=== PATIENT | female | born 1955 | race Caucasian/White ===

== ENCOUNTER 2025-03-20 05:22 | Observation (INO) | payer OTHER ==
[2025-03-14 13:39] LABS: MEAN PLATELET VOLUME 8.7 FL (7.4-10.4); PRE OP HEMATOCRIT 38.5 % (35.0-45.0); PRE OP HEMOGLOBIN 13.1 g/dL (12.0-16.0); PRE OP PLATELET COUNT 212 X10'3 (140-440); PRE OP WHITE BLOOD COUNT 8.4 10'3 (4.8-10.8); RED CELL DISTRIBUTION WIDTH 13.8 % (11.5-14.5)
[2025-03-14 13:56] LABS: CREATININE 1.02 MG/DL (0.40-0.90); PRE OP ALT 20 U/L (30-65); PRE OP ANION GAP 10 (8-16); PRE OP AST 17 U/L (10-37); PRE OP BILIRUB, TOTAL 0.4 MG/DL (0.0-1.0); PRE OP GLUCOSE 95 MG/DL (70-104); PRE OP POTASSIUM 3.6 MMOL/L (3.4-5.1); PRE OP SODIUM 142 MMOL/L (135-145); TOTAL CARBON DIOXIDE 27.3 MMOL/L (24-32); eGFR 54 ML/MIN
[2025-03-20] VITALS (22 sets, daily range): BP systolic 112–138; BP diastolic 46–82; PULSE 44–70; RESP 10–17; TEMP 96.7–98.1; O2SAT 96–100
[~2025-03-20] VITALS: Ht 177.8 cm; Wt 99.3 kg
[~2025-03-20 05:22] MED LIST: ACYC-126 PO; BUPR-726 PO; CHOL100046 PO; DILT120C88 PO; ESCI-8 PO; HYDR-3686 PO; HYDR-3973 PO; HYDR12.55 PO; LORA-269 PO; MELO-102 PO
[2025-03-20] MEDS: ceFAZolin 2gm/dext,iso 50mL 50 ML IV ONE (05:42)
[2025-03-20] MEDS: ringers solution, lacted 1,000 ML IV SCH (05:43)
[2025-03-20] MEDS: VANCOMYCIN/H2O 1.5g/300mL PB 300 ML IV ONE (05:44)
[2025-03-20] MEDS ORDERED: BUPIVACAINE/MELOXICAM 14 ML VIAL IL ONE (06:42)
[2025-03-20] MEDS ORDERED: tetracaine 1% (10mg/ml) pres. free inj. ONE (07:14)
[2025-03-20] MEDS ORDERED: fentaNYL/PF 50MCG/1 ML 2ML syringe ONE (07:17)
[2025-03-20] MEDS ORDERED: MIDAZolam 1mg/ml 10ml vial ONE ×2 (07:17→07:46)
[2025-03-20] MEDS ORDERED: propofol inj 20 ML IV ONE ×2 (07:40)
[2025-03-20] MEDS ORDERED: ringers solution, lacted 1,000 ML IV SCH (08:05)
[2025-03-20] MEDS ORDERED: morphine 4 MG/ML inj SYRINge IV PRN (08:05)
[2025-03-20] MEDS ORDERED: enalaprilat 1.25mg/ml 2ml vial IV PRN (08:05)
[2025-03-20] MEDS ORDERED: hydrALAZINE 20mg/ml inj. IV PRN (08:05)
[2025-03-20] MEDS ORDERED: ondansetron/PF 4mg/2ml inj IV PRN ×2 (08:05→09:50)
[2025-03-20] MEDS ORDERED: fentaNYL/PF 50MCG/1 ML 2ML syringe IV PRN ×2 (08:05)
--- NOTE | 2025-03-20 08:14 | ANESTHESIA RECORDS ---
Nerve Block Providers to CC CC: MOHSEN LUNA MD ~ Diagnosis: Nerve Block requested by: MOHSEN LUNA MD Neuraxial/Peripheral Nerve Block requested for Post-operative analgesia by Physician above DIAGNOSIS: Post-operative pain. (Body Area) Shoulder: [ ] Arm: [ ] Hand: [ ] Hip: [ ] Knee: [ Right ] Ankle: [ ] Foot: [ ] Leg: [ ] Abdomen: [ ] Other: [ ] Post-operative pain expected to be/is inadequately managed by oral or IV medicines. Regional anesthetic expected to facilitate rehabilitation and/or discharge from facility. Other:[ _] Procedure Performed: Femoral / Saphenous: Right Time out Done?: Yes Time of Time out: 08:04 Procedure Details: PROCEDURE DETAILS: Risks, benefits and alternatives explained Informed consent obtained, and patient wishes to proceed Conscious sedation with indicated monitors Patient positioned, pertinent anatomy defined, sterile technique used Needle used: [ ] 3 1/8 inch Stimuplex Ultra 22ga [ ] 4 inch Stimuplex Ultra 20ga [ X] 6 inch Stimuplex Ultra 20ga [ ] 6 inch, Quikbloc over the needle catheter set 20ga [ ] 4 inch Quikbloc over the needle catheter set 20ga [ ]Other: [ ] Loss of twitch @ [ ]mA [ X] Single Injection [ ] Catheter Ultrasound Guidance Used: [ X] Yes [ ] No Attempts:[_1 ] Medicines injected: [ ]Clonidine Amt:[ ] [ ]Dexamethasone Amt:[ ] [ X ]Ropivacaine Amt:[_0.5% 30 c.c ] [ ]Bupivacaine Amt:[ ] [ ]Lidocaine Amt:[ ] [ ]Exparel 1.33%:[ ] [ ]Epinephrine Amt[ ] [ ]Other: [ ] Intermittent aspiration during local anesthetic administration No symptoms of intraneural or intravenous injection Patient tolerated procedure well Comments Right mid medial thighis examined with Ultrasound and aductor canal and vessels are identified. Needleis in the canal and after negative aspirations ,local mix is injected,spreead is noted. Ultrasound image is captured,documented. CED CHILEL MD Mar 20, 2025 08:14
[2025-03-20] MEDS: BUPIVACAINE/MELOXICAM 14 ML VIAL IL ONE (08:23)
[2025-03-20] MEDS ORDERED: ROPIVAcaine 0.5% (5mg/ml) 30ml vial ONE ×2 (09:29→09:31)
[2025-03-20] MEDS ORDERED: PCA WASTE DOCUMENTATION 1 MG ML MC SCH (09:50)
[2025-03-20] MEDS ORDERED: magnesium hydroxide 30ml (MOM) UD suspension PO PRN (09:50)
[2025-03-20] MEDS: ROPIVAcaine 0.5% (5mg/ml) 30ml vial IJ ONE (09:50)
[2025-03-20] MEDS ORDERED: bisacodyl 10mg suppository rectal RC PRN (09:50)
--- NOTE | 2025-03-20 10:04 | OPERATIVE REPORT ---
Operative Report Operative Report OPERATIVE REPORT [facility] [address] [place] [address] Date of service: March 20, 2025 PREOPERATIVE DIAGNOSIS [id number] Primary osteoarthritis of right knee POSTOPERATIVE DIAGNOSIS [id number]..[id number] Primary osteoarthritis of right knee Operation Performed 81170 Computer Assisted Navigation Musculoskeletal - Imageless 17948 Total Knee Arthroplasty 80312 Remote therapeutic monitoring; device supply with scheduled recordings every 30 days. Procedure: Computer-assisted, robotically-assisted, right total knee arthroplasty. Surgeon: Dr. Red Rob Deburr Technician: Kyra Alberto PA-C Anesthesiologist: Dr. Tello Anesthesia: Spinal anesthetic and regional blocks Indications: 69-year-old female who has chronic osteoarthritis of the right knee with severe pain and limitation of activities despite extensive non- operative management. This patient has had extensive conservative treatment of knee joint arthritis, including rest, external joint support, anti-inflammatory medications, physical therapy, and corticosteroid injection. Physical therapy has been provided, along with a home exercise program prior to making the decision to proceed with surgical treatment. This therapeutic intervention did not provide any substantial relief of symptoms or improvement in function. The patient has been utilizing a cane, set of crutches, or walker, for more than 3 months prior to deciding to proceed with surgery. These interventions have not provided sufficient relief of pain to allow improvement in function. The patient has utilized non-steroidal anti-inflammatory medications for relief of pain over an extended period of time (more than 2 months), and has not experienced sufficient improvement in symptoms. Despite these treatments, this patient has continued difficulties with pain and limited function. They are unable to walk long distances, do vigorous activities, sit or sleep comfortably. Total knee replacement is the next reasonable step in terms of treatment. Indications for insurance underwriting assistant surgeon: A second set of skilled hands with specific orthopedic knowledge of the surgical procedure and orthopedic surgical techniques was necessary to accomplish this operation successfully, and with the least amount of morbidity for the patient. This facilitated operative exposure, manipulation and handling of tissues, placement of any implants, and accomplishment of wound closure. Findings: There was indeed a very severely arthritic knee, with loss of cartilage, exposed bone, and marginal osteophytes. The lateral compartment was particularly bad. A 7 degree valgus deformity and 2.5 degree extension deformity were measured preoperatively. Post operative alignment was 1 degree v arus, and two degrees extension. Complications: None Estimated Blood Loss: 150 mL Implants: A Praneeth Persona CR total knee system was utilized with a size eight right femoral component, a size D right tibial component with a smart stem, and a 35 mm patellar component. The 14 mm medial congruent right tibial insert was utilized. The Riboxx robotically assisted total knee arthroplasty system and computer was utilized. Procedure: The risks, benefits, expected results, and possible complications of the planned procedure had been explained to the patient and informed consent obtained. The patient was taken to the operating room and underwent a spinal anesthetic. The patient was placed in the supine position on the operating table, and the right leg was prepped and draped in the usual fashion. A timeout was taken prior to surgery, confirming patient identification, operative side operative site, planned procedure, administration of pre-operative antibiotics, site marking, and presence of all necessary implants and instruments, x-rays and equipment. A standard anterior, slightly lateral approach was performed with a medial par apatellar arthrotomy, and a VMO split. Time was then spent removing excessive synovial tissue and exposing the medial and lateral gutters, as well as moving the anterior sections of the residual menisci. The patella was mobilized to be able to be retracted laterally. This gave exposure of the anterior aspect of the knee. Attention was then directed to the patella. An oscillating saw was utilized to make a flat cut in a freehand manner, removing approximately 9 mm of thickness. The patella was then sized and drilled for the appropriate size patella implant. Infrared arrays were then placed on the distal shaft of the femur anteriorly, and the proximal tibia medially. Utilizing the Riboxx computer system, the hip, knee, and ankle were landmarked in usual fashion. The initial alignment measurements were then taken confirming the above listed deformity. Surgical planning was then carried out on the computer, confirming alignment of components, sizing, and gap balancing. Appropriate soft tissue releases were pe rformed. The insurance underwriting assistant surgeon was instrumental in maintaining exposure and tissue management and protecting vital structures. The robot was then utilized to perform all distal femoral cuts. The femur was prepared in 4 degrees of flexion and neutral coronal alignment. The robot was then utilized to cut the proximal tibia in 5 degrees of flexion and neutral coronal alignment. The computer was then utilized to check longitudinal alignment and soft tissue balance, and this confirmed excellent alignment. Next the dynamic balancing block was utilized to check and adjust soft tissue balancing. Finally, attention was directed to the proximal tibia. The implant was sized and properly rotated, the central drill, and the fin punch performed. Final check of alignment and balancing was then carried out, as well as final removal and cleaning up of soft tissue such as meniscal remnants and osteophytes. A tourniquet was inflated to 300 mmHg after exsanguination of the leg with an Esmarch. Cement was then mixed; 2 batches were utilized, mixed together, for the tibia, the femur and the patella. The cut surface of the tibia was thoroughly lavaged with the pulsating lavage and then dried. The tibia was impacted with the mallet, seating it quite nicely in its proper rotational alignment. Excess cement was removed from around the margins. The femoral cuts were cleaned with a pulsating lavage and then dried with the lap sponges, and the femur was impacted into position with a mallet. The patella was held firmly in place with a clamp. Excess cement was removed around the margins of the components as the cement cured. Pressure was held on the femoral component and tibia by placing a spacer and bringing the leg to full extension and applying axial and hyperextension force. Upon complete hardening of all cement, the knee was inspected and excess cement removed. We lavaged the knee to wash out any debris and checked to make sure we had no impinging cement. The trial spacer was replaced and overall alignment checked with computer, ensuring we had full extension of the knee, and appropriate medial and lateral soft tissue balance, as well as flexion and e xtension balance. The tourniquet was deflated and hemostasis obtained with electrocautery. The wound was irrigated thoroughly one more time and then dried with lap sponges. The final tibial spacer was impacted and locked into the locking mechanism without difficulty. After final irrigation and suction of excess fluid, the knee was infiltrated with our intraoperative local anaesthetic mixture for postoperative pain control. The tibial and femoral navigation pins and arrays were removed. The tourniquet was then deflated, tourniquet time was 14 minutes. The wound was then closed in layers including retinacular closure, subcutaneous tissue, and skin. A sterile dressing was applied and the patient was returned to the recovery room in satisfactory condition. Electronically Signed by: Red Rob MD Doctor, Orthopedic Surgery Signed on: 03/20/2025 10:04 AM RED ROB MD Mar 20, 2025 10:04
[2025-03-20] MEDS: oxyCODONE IR 5mg (immed. release) tablet PO PRN ×2 (13:19→21:26)
[2025-03-20] MEDS: ceFAZolin/D5W- 1GM premix 50 ML IV SCH (16:00)
[2025-03-20] MEDS ORDERED: HYDROmorphone inj. 0.5 MG/0.5 ML DISP.SYRIN IV PRN (17:35)
[2025-03-20] MEDS: vancomycin/NS 1 GM ADD-VANTAGE 250 ML IV SCH (19:59)
[2025-03-20] MEDS: potassium cl 20mEq in 1/2 NS 1,000 ML IV SCH (20:03)
[2025-03-21 02:00] VITALS: BP 109/40; PULSE 55; RESP 14; TEMP 97.6; O2SAT 97
[2025-03-21 05:59] LABS: MEAN PLATELET VOLUME 9.2 FL (7.4-10.4); RED CELL DISTRIBUTION WIDTH 13.8 % (11.5-14.5)
[2025-03-21 06:00] VITALS: BP 115/44; PULSE 54; RESP 15; TEMP 97.3; O2SAT 97
[2025-03-21 06:28] LABS: TOTAL CARBON DIOXIDE 30.0 MMOL/L (24-32)
--- NOTE | 2025-03-21 07:41 | DISCHARGE SUMMARY ---
Discharge Summary Ortho CC ~ Discharge Summary *Problems/Diagnosis: (1) S/P total knee arthroplasty Status: Acute Admission Diagnosis: osteoarthritis Discharge Diagnosis\Comment: see above Operations\Procedures see above Consultants: none Complications: none Condition on DC: Stable Discharge Summary: Patient has right TKA on date of admission with an uneventful overnight stay. She had some difficulty with early pain management but has since improved. She is stable for d/c home today so long as she meets d/c criteria and works with physical therapy. Total Time Spent on D/C: Up to 30 Minutes Medications Home Meds: Home Medications Active Reported Vitamin D3 (Cholecalciferol (Vitamin D3)) 25 Mcg (1000 Unit) Capsule 1 Cap PO DAILY Cardizem Cd (Diltiazem Hcl) 120 Mg Cap.sr.24h 1 Cap PO DAILY Escitalopram Oxalate 10 Mg Tablet 30 Mg PO DAILY Atarax* (Hydroxyzine HCl) 25 Mg Tablet 50 Mg PO HS Meloxicam 15 Mg Tablet 1 Tab PO DAILY Hydrocodone-Apap 10-325 Tablet (Acetaminophen/Hydrocodone Bitart) 10mg/325mg Tablet 1 Tab PO TID PRN Hydrochlorothiazide 12.5 Mg Tablet 1 Tab PO DAILY Bupropion Xl (Bupropion HCl) 150 Mg Tab.er.24h 1 Tab PO DAILY Ativan (Lorazepam) 1 Mg Tablet 1 Tab PO TID PRN Acyclovir 400 Mg Tablet 1 Tab PO BID Supervising Physician Supervising Physician: Dr. Red Rob Problem Qualifiers (1) S/P total knee arthroplasty: Qualified Codes: Z96.651 - Presence of right artificial knee joint VIOLET HOGAN PAC Mar 21, 2025 07:41
[2025-03-21] MEDS: diltiazem CD 120mg capsule (once-daily) PO SCH (07:59)
[2025-03-21 08:00] VITALS: RESP 16
[2025-03-21] MEDS: ESCITALOPRAM 10 mg tablet 10 MG TABLET PO SCH ×2 (08:00→20:02)
[2025-03-21] MEDS: cholecalciferol (vitamin D3) 1,000 unit (25mcg) tablet PO SCH (08:02)
[2025-03-21] MEDS: BUPROPION HCL 150MG XL 24 HR 150 MG TAB PO SCH (08:03)
[2025-03-21 10:00] VITALS: BP 106/42; PULSE 50; RESP 16; TEMP 98.1; O2SAT 97
[2025-03-21] MEDS: JUVEN Smoothie Arginine/Glut./Ca2+Bmb (Juven 19.3pkt) 240ml cup PO SCH (17:42)
[2025-03-21 18:00] VITALS: BP 131/49; PULSE 61; RESP 16; TEMP 98.7; O2SAT 99
[2025-03-21 22:00] VITALS: BP 123/46; PULSE 64; RESP 16; TEMP 97.9; O2SAT 99
[2025-03-22 03:00] VITALS: O2SAT 99
[2025-03-22 04:58] LABS: MEAN PLATELET VOLUME 9.4 FL (7.4-10.4); RED CELL DISTRIBUTION WIDTH 13.7 % (11.5-14.5)
--- NOTE | 2025-03-22 07:20 | PROGRESS NOTE ---
Progress Note Orthopedic Ortho Post Op Day #: 1 Progress Note This progress note is for 03/21/2025. Patient originally anticipated going home yesterday but ultimately ended up staying because of pain and difficulty ambulating. Today she feels much better. She will be discharged home today. Discharge summary already done yesterday. Objective Vital Signs Date Time Temp Pulse Resp B/P (MAP) Pulse Ox O2 Delivery O2 Flow Rate FiO2 03/22/25 04:36 14 03/22/25 03:01 Room Air 0.0 99 03/22/25 03:00 99 03/21/25 22:00 97.9 64 123/46 (71) Result Diagram: 03/22/25 0443 03/21/25 0531 Alert and Oreinted x4, Appropriate, In no acute distress, Dressing clean and dry Problem/Assessment/Plan Problems/Diagnosis: (1) S/P total knee arthroplasty Discharge to home on 03/22/2025. Follow up in my office in approximately 2 weeks for recheck Problem Qualifiers (1) S/P total knee arthroplasty: Qualified Codes: Z96.651 - Presence of right artificial knee joint MOHSEN LUNA MD Mar 22, 2025 07:19
[2025-03-22 07:30] VITALS: RESP 18; O2SAT 97
== END 2025-03-22 10:10 | disposition home or self-care (01) ==
LOC: PAS 05:22 → ORTHO 4S 05:23
PROVIDERS: ADMIT Orthopaedic Surgery; ATTEND Orthopaedic Surgery
DX: M17.11 Unilateral primary osteoarthritis, right knee (principal); M25.561 Pain in right knee; M17.31 Unilateral post-traumatic osteoarthritis, right knee; I10 Essential (primary) hypertension; F41.9 Anxiety disorder, unspecified; F32.9 Major depressive disorder, single episode, unspecified; E66.9 Obesity, unspecified; Z68.31 Body mass index [BMI] 31.0-31.9, adult; Z79.899 Other long term (current) drug therapy; Z98.890 Other specified postprocedural states
CPT/HCPCS: 20985; 27447; 36415; 80051; 80053; 82948; 85025; 87081; 96365; 96366; 96367; 96375; 96376; 97110; 97116; 97161; 97530; C1713; C1776; C9088; G0378; J0690; J1171; J2250; J2704; J2795; J3010; J3373; J3375; J3480; J3490; J7120; Q0177; A4215; A6449; A7000; C9250; J7040